=== PATIENT | female | born 1985 | race African-American/Black ===

== ENCOUNTER 2018-07-26 20:25 | Emergency (ER) | payer SELFPAY ==
[~2018-07-26] VITALS: Ht 165.1 cm; Wt 102.1 kg
--- OUTSIDE RECORDS SUMMARY | 2018-07-26 20:26 | XMS REPORT | Clinical Summary ---
Author Author [facility] Organization [facility] Address Unknown Phone Unavailable Care Team Providers Care Engineering Inspector Name Role Phone Asked, No Pcp PCP Unavailable Allergies No Known Allergies Medications End Date Status Medication Sig Dispensed Refills Start Date 08/10/2017 naproxen (NAPROSYN) 500 Take 1 tablet 30 tablet 0 MG tablet (500 mg 8 total) by mouth 2 (two) times a day as needed for mild pain or moderate pain for up to 30 days. Active Problems Problem Noted Date Abnormal uterine and vaginal bleeding, unspecified 10/19/2016 Dysfunctional uterine bleeding 10/19/2016 Retained products of conception with hemorrhage 10/18/2016 Overview: Added automatically from request for surgery [id number] Social History Date Tobacco Use Types Packs/Day Years Used Never Smoker Smokeless Tobacco: Never Used Alcohol Use Drinks/Week oz/Week Comments No Sex Assigned at Date Recorded Not on file Industry Job Start Date Occupation Not on file Not on file Not on file Travel End Travel History Travel Start No recent travel history available. Last Filed Vital Signs Not on file Plan of Treatment Health Maintenance Due Date Last Done Comments CERVICAL CANCER SCREENING 07/04/2008 INFLUENZA VACCINE 11/30/2017 Results Not on fileafter 07/25/2017 Insurance Payer Benefit Subscriber ID Type Phone Address Plan / Group MEDICAID MEDICAID xxxxxxxxx Medicaid Advance Directives Patient has advance care planning documents, and code status on file. For more i nformation, please contact: [facility] [address] [place] [address] Date Inactivated Comments Code Status Date Activated 10/20/2016 3:13 AM Full Code 10/19/2016 7:13 AM Code Status decision reached by: Patient
--- OUTSIDE RECORDS SUMMARY | 2018-07-26 20:27 | XMS REPORT ---
Author Author [facility] Address Unknown Phone Unavailable Care Team Providers Care Field Machinist Name Role Phone Joe WEAVER PP Unavailable Joe WEAVER Unavailable Unavailable Problems This patient has no known problems. Allergies, Adverse Reactions, Alerts This patient has no known allergies or adverse reactions. Medications This patient has no known medications. Results Test Description Test Time Test Comments Text Results Atomic Results Result Comments Lupus Anticoagulant Reflex 2016-09-21 12:20:00 dRVVT (test gyqk=[id number]) 39.5 sec 0.0-47.0 Please note reference interval change PTT - LA (test seed=[id number]) 38.6 sec 0.0-43.6 Effective October 25, 2016 the reference interval for PTT-LA, will be changing to: 0.0 - 51.9 Lupus Reflex Interpretation (test [id number]=[id number]) Comment: No lupus anticoagulant was detected. Anticardiolipin Ab, IgM, [id number] 12:20:00* Test Item Value Reference Range Comments Anticardiolipin Ab, IgM, Qn (test vdoi=[id number]) <9 MPL U/mL 0-12 Negative: <13 Indeterminate: 13 - 20 Low-Med Positive: >20 - 80 High Positive: >80 Parvovirus B19, Human, IgG [id number] 11:42:00* Test Item Value Reference Range Comments Parvovirus B19, IgG (test jpfj=[id number]) 1.9 index 0.0-0.8 Negative <0.9 Equivocal 0.9 - 1.1 Positive >1.1 Parvovirus B19, IgM (test ieia=[id number]) 0.3 index 0.0-0.8 Negative <0.9 Equivocal 0.9 - 1.1 Positive >1.1 Rho Immune Globulin [id number] 06:23:00* Test Item Value Reference Range Comments Derivative Code (test code=DERIVCODE) RHG Derivative Lot (test code=DERIVLOT) [id number] Screen, Maternal [id number] 06:21:00* Test Item Value Reference Range Comments Screen (test code=FETALSCR) Negative [id number] 05:22:00* Test Item Value Reference Range Comments WBC (test code=WBC) 9.1 K/cumm 4.4-10.5 RBC (test code=RBC) 3.36 M/cumm 3.75-5.20 Hemoglobin (test code=HGB) 10.2 gm/dL 12.2-14.8 Hematocrit (test code=HCT) 30.2 % 36.5-44.4 MCV (test code=MCV) 89.9 fL 80-100 MCH (test code=MCH) 30.3 pg 27.0-32.5 MCHC (test code=MCHC) 33.7 g/dL 32.0-37.5 RDW (test code=RDW) 14.8 % 11.5-14.5 Platelet Count (test code=PLTCT) 174 K/cumm 140-440 MPV (test code=MPV) 10.2 fL RPR, [id number] 04:29:00* Test Item Value Reference Range Comments RPR (test code=RPR) Non-Reactive Non-Reactive Antibody Screen - [id number] 02:00:00* Test Item Value Reference Range Comments Antibody Screen (test code=ABSCR) Negative Blood Type and [id number] 02:00:00* Test Item Value Reference Range Comments ABO type (test code=ABO) A Rh Type (test code=RH) Negative Hep B Surface [id number] 01:41:00* Test Item Value Reference Range Comments Hep Bs Ag (test code=HBSAG) Nonreactive Non-Reactive Thyroid Stimulating Hormone (TSH)2016-09-17 01:41:00* Test Item Value Reference Range Comments TSH (test code=TSH) 3.13 mIU/mL 0.270-4.200 [id number] 01:30:00* Test Item Value Reference Range Comments Amphetamine (test code=AMPH) Negative Negative For diagnostic purposes only, positive results should always be assessedin conjunctionwith the patient's medical history,clinical examination and otherfindings.To fulfill legal requirements, a more specific alternate chemical methodmust be used inorder to obtain a Confirmed analytical result. GC/MS is the preferred confirmatory method. Barbiturates (test code=MARY JANE) Negative Negative Benzodiazepine (test code=NICKIE) Negative Negative Cocaine (test code=COCA) Negative Negative Methadone (test code=MTHD) Negative Negative Opiates (test code=OPIA) Negative Negative PCP (test code=PCP) Negative Negative Propoxyphene (test code=PROPOX) Negative Negative THC (test code=THC) Negative Negative CBC LD with [id number] 01:10:00* Test Item Value Reference Range Comments WBC (test code=WBC) 10.7 K/cumm 4.4-10.5 RBC (test code=RBC) 3.95 M/cumm 3.7-5.2 Hemoglobin (test code=HGB) 11.9 g/dL 12.2-14.8 Hematocrit (test code=HCT) 35.2 % 36.5-44.4 MCV (test code=MCV) 89.2 fL 80.0-100.0 MCH (test code=MCH) 30.0 pg 27.0-32.5 MCHC (test code=MCHC) 34 g/dL 32-37 RDW (test code=RDW) 14.3 % 11.5-14.5 Platelet Count (test code=PLTCT) 207 K/cumm 140-440 MPV (test code=MPV) 10.3 fL Diff Method (test code=DIFFM) Auto Neutrophil (test code=NEUT) 75.8 % 36.0-70.0 Lymphocyte (test code=LYMPH) 16.3 % 12.0-44.0 Monocyte (test code=MONO) 6.4 % 0.0-11.0 Eosinophil (test code=EOS) 1.4 % 0.0-7.0 Basophil (test code=BASO) 0.2 % 0.0-2.0 Neutro Abs (test code=ANEUT) 8.1 K/cumm 1.6-7.4 Lymph Abs (test code=ALYMPH) 1.7 K/cumm 0.5-4.6 Barber Abs (test code=AMONO) 0.7 K/cumm 0.0-1.2 Eos Abs (test code=AEOS) 0.2 K/cumm 0.0-0.7 Baso Abs (test code=ABASO) 0.0 K/cumm 0.0-0.2
--- OUTSIDE RECORDS SUMMARY | 2018-07-26 20:27 | XMS REPORT ---
Author Author Admin, [place] Organization [facility] Address [address] [id number] Phone Allergies, Adverse Reactions, Alerts Allergy Name Reaction Description Start Date Severity Status Provider Allergies Unknown Conditions or Problems Problem Name Problem Code Onset Date Status Entry Date Provider Comment Standard Description Annotate Problems Unknown Medication List Medication Instructions Start Date Stop Date Generic Name NDC Status Provider Patient Instruction Drug Treatment Unknown - unknown
[2018-07-26 21:36] LABS: BILIRUBIN,URINE NEGATIVE (NEGATIVE); CLARITY,URINE CLEAR (CLEAR); COLOR,URINE YELLOW (YELLOW); KETONES,URINE NEGATIVE (NEGATIVE); LEUKOCYTE ESTERASE ,URINE TRACE (NEGATIVE); NITRITE,URINE NEGATIVE (NEGATIVE); PROTEIN,URINE DIPSTICK NEGATIVE (NEGATIVE); URINE UROBILINOGEN 0.2 mg/dL (0.2 - 1)
[2018-07-26 21:39] LABS: BACTERIA,URINE FEW /HPF; EPITHELIAL CELLS,URINE FEW /LPF; PREGNANCY TEST, URINE NEGATIVE (NEGATIVE); WBC,URINE (MAN) 0-5 /HPF (0-5)
[2018-07-26] MEDS ORDERED: KETOROLAC TROMETHAMINE 60 MG/2 ML VIAL ONE (22:11)
[2018-07-26] MEDS: KETOROLAC TROMETHAMINE 60 MG/2 ML VIAL IM ONE ×2 (22:14→22:21)
[2018-07-26] MEDS ORDERED: CYCLOBENZAPRINE HCL 10 MG TAB PO ONE (22:15)
[2018-07-26] MEDS ORDERED: ORPHENADRINE CITRATE 30 MG/ML VIAL IM ONE (22:15)
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
[2018-07-26 22:33] VITALS: BP 132/80
== END 2018-07-26 22:45 | disposition home or self-care (01) ==
LOC: ER 20:25
DX: S16.1XXA Strain of muscle, fascia and tendon at neck level, initial encounter (principal); S33.5XXA Sprain of ligaments of lumbar spine, initial encounter; S40.012A Contusion of left shoulder, initial encounter; V43.52XA Car driver injured in collision with other type car in traffic accident, initial encounter; Y92.410 Unspecified street and highway as the place of occurrence of the external cause; F17.200 Nicotine dependence, unspecified, uncomplicated
CPT/HCPCS: 71046; 72040; 73030; 81001; 81025; 96372; 99283; J1885